=== PATIENT | female | born 1985 | race Caucasian/White ===

== ENCOUNTER 2023-09-12 12:40 | Outpatient (REF) | payer OTHER, SELFPAY ==
[2023-09-12 14:16] LABS: MANUAL DIFF FLAG NO
[2023-09-12 14:19] LABS: Basophils Absolute Auto 0.1 X10*3/uL (0.0-0.2); Basophils Percent Auto 0.8 % (0-2); Eosinophils Absolute Auto 0.3 X10*3/uL (0.0-0.4); Eosinophils Percent Auto 3.1 % (0-4); Hematocrit 42.6 % (37.0-47.0); Hemoglobin 14.1 g/dl (12.0-16.0); Imm Gran Abs Auto 0.04 X10*3/uL (0.00-0.03); Imm Gran Pct Auto 0.4 % (0.0-0.4); Lymphocytes Absolute Auto 4.1 X10*3/uL (1.2-4.9); Lymphocytes Percent Auto 37.9 % (20-40); Mean Corpuscular HGB Conc 33.1 g/dl (31.0-35.0); Mean Corpuscular Volume 93.6 fL (80.0-98.0); Mean Platelet Volume 10.6 fL (9.4-12.3); Monocytes Absolute Auto 0.6 X10*3/uL (0.1-1.2); Neutrophils Absolute Auto 5.5 x10*3/uL (2.0-8.3); Neutrophils Percent Auto 51.8 % (45-73); Platelet Count 260 X10*3/uL (160-400); Red Blood Count 4.55 X10*6/uL (4.20-5.50); Red Cell Distribution Width 13.3 % (11.0-16.0); White Blood Count 10.7 X10*3/uL (4.8-10.8)
[2023-09-12 14:51] LABS: Alanine Aminotransferase 14 U/L (0-31); Albumin Level 4.1 g/dL (3.5-5.0); Alkaline Phosphatase 67 U/L (39-117); Aspartate Amino Transferase 18 U/L (5-31); Bilirubin Direct 0.1 mg/dL (0.0-0.5); Bilirubin Total 0.3 mg/dL (0.0-1.0); Total Protein 7.1 g/dL (6.5-8.0)
[2023-09-12 14:53] LABS: TSH reflex Free T4 1.57 uIU/mL (0.32-4.0); Vitamin D 25-OH Total 40.3 ng/mL (>30)
[2023-09-12 15:02] LABS: Folate 16.6 ng/mL (> or = 4.0); Vitamin B12 859 pg/mL (200-900)
== END 2023-09-12 12:41 | disposition home or self-care (01) ==
LOC: HO.CHCLDS 12:40
PROVIDERS: Visit Provider Nurse Practitioner Family
DX: F43.10 Post-traumatic stress disorder, unspecified (principal); R53.83 Other fatigue
CPT/HCPCS: 36415; 80076; 82306; 82607; 82746; 84443; 85025

== ENCOUNTER 2025-02-26 10:17 | Outpatient (REF) | payer OTHER, SELFPAY ==
--- OUTSIDE RECORDS SUMMARY | 2025-02-26 10:15 | XMS_ITS | Encounter Summary ---
Author Organization [employer] Address [address] [place] [address] [address] [place] [address] Care Team Providers Care Wrestling Coach Name Role Phone Rita Luong MD Primary Care Provider [phone] Blas Palma Unavailable Unavailable Reason for Visit * Reason Comments Annual Exam Encounter Details Date Type Department Care Team ([facility] Contact Info) Description 02/26/2025 10:15 AM EDT Office Visit [facility] MED [facility] P[facility] [address] [place] [address] Rita Luong MD [address] [place] [address] Mild persistent asthma without complication (Primary Dx); Encounter for immunization; Gastroesophageal reflux disease without esophagitis; Moderate manic bipolar I disorder (CMS/HCC) (HCC); Encounter for annual wellness visit Social History Tobacco Use Types Packs/Day Years Used Date Smoking Tobacco: Every Day Cigarettes Tobacco Cessation:Ready to Q uit: Not Asked; Counseling Given: Not Answered Alcohol Use Standard Drinks/Week Comments Never 0 (1 standard drink = 0.6 oz pur e alcohol) Alcohol Answer Date Recorded Frequency of Alcohol Consumption Not on file 02/09/2024 Average Number of Drinks Not on file 024 Frequency of Binge Drinking Not on file 07/2023 Score 0 02/09/2024 Depression Answer Date Recorded Patient Health Questionnaire-9 Score 17 02/09/2024 Patient Health Questionnaire-9 Score 17 02/09/2024 Last PHQ-9: Questionnaire Data Not on file 1 Housing Stability Answer Date Recorded What is your housing situation today? I have ami johnson 02/21/[address] you li ve. Do you have problems with any of the following? None of the above 02/21/2025 Food Insecurity Answer Date Recorded Within the past 12 months, y ou worried that your food would run out before you got money to buy more: Never True 02/21/2025 Within the past 12 months,th e food you bought just didn't last and you didn't have enough money to get more: Never True Transportation Answer Date Recorded In the past 12 months, has l ack of transportation kept you from medical appts, meetings, work or from getting things needed for daily living? No 02/21/2025 Utilities Answer Date Recorded In the past 12 months, has t he electric, gas, oil or water company threatened to shut off services in your home? No 02/21/2025 Depression Answer Date Recorded Patient Health Questionnaire-2 Score 5 02/09/2024 Internet Access Answer Date Recorded Internet Access Q1 Yes 02/21/2025 Internet Access Q2 Not on file 02/21/2025 Comments No Sex and Gender Information Value Date Recorded Sex Assigned at Female 03/08/2022 10:19 AM EDT Legal Sex Female 10:19 AM EDT Gender Identity Female 02/10/2024 10:28 AM EDT Sexual Orientation Choose not to disclose 2021 10:19 AM EDT documented as of this encounter Last Filed Vital Signs Vital Sign Reading Time Taken Comments Blood Pressure 119/72 02/26/2025 9:59 AM EDT Pulse 73 02/26/2025 9:59 AM EDT Temperature 36.6 C (97.9 F) 02/26/2025 9:59 AM EDT Respiratory Rate 18 02/26/2025 9:59 AM EDT Oxygen Saturation - - Inhaled Oxygen Concentration - - Weight 76.7 kg (169 lb) 02/26/2025 9:59 AM EDT Height 158.1 cm (5' 2.25 ) 02/26/2025 9:59 AM ED T Body Mass Index 30.66 02/26/2025 9:59 AM EDT documented in this encounter Progress Notes * Rita Luong MD - 02/26/2025 10:15 AM EDT Subjective Patient ID: Chasidy Cheng is a 39 y.o. female who presents for Annual Exam. Asthma There is no chest tightness, cough, difficulty breathing, frequent throat clearing, hemoptysis, shortness of breath, sputum production or wheezing. This is a chronic problem. The problem has been unchanged (well controlled). Pertinent negatives include no chest pain, dyspnea on exertion, ear pain, fever, headaches, myalgias, nasal congestion, orthopnea, PND, postnasal drip, sore throat, sweats, trouble swallowing or weight loss. Her symptoms are alleviated by beta-agonist. She reports significant improvement on treatment. Her past medical history is significant for asthma. Review of Systems Constitutional: Negative. Negative for fever and weight loss. HENT: Negative for ear pain, postnasal drip, sore throat and trouble swallowing. Respiratory: Negative. Negative for cough, hemoptysis, sputum production, shortness of breath and wheezing. Cardiovascular: Negative for chest pain, dyspnea on exertion, palpitations and PND. Gastrointestinal: Negative. Genitourinary: Negative. Musculoskeletal: Negative for myalgias and neck pain. Neurological: Negative for headaches. Objective Physical Exam Constitutional: Appearance: Normal appearance. HENT: Head: Normocephalic and atraumatic. Right Ear: Tympanic membrane normal. Left Ear: Tympanic membrane normal. Mouth/Throat: Mouth: Mucous membranes are moist. Eyes: Pupils: Pupils are equal, round, and reactive to light. Cardiovascular: Rate and Rhythm: Normal rate and regular rhythm. Pulses: Normal pulses. Heart sounds: Normal heart sounds. Pulmonary: Effort: Pulmonary effort is normal. Breath sounds: Normal breath sounds. Abdominal: General: Abdomen is flat. Palpations: Abdomen is soft. Musculoskeletal: General: Normal range of motion. Skin: General: Skin is warm. Neurological: General: No focal deficit present. Mental Status: She is alert. Psychiatric: Mood and Affect: Mood normal. Behavior: Behavior normal. Assessment/Plan Diagnoses and all orders for this visit: Mild persistent asthma without complication Comments: Well controlled No changes in inhalers Encounter for immunization - FLU VACCINE TRIVALENT [id number] (Fluarix) 19 yrs + Gastroesophageal reflux disease without esophagitis Comments: Stable Moderate manic bipolar I disorder (CMS/HCC) ([facility]) Comments: Pt has been anxious about insuranc enot approving Zepbound She is given info about other options Encounter for annual wellness visit documented in this encounter Plan of Treatment Not on file documented as of this encounter Visit Diagnoses Diagnosis Mild persistent asthma without complication- Primary Encounter for immunization Gastroesophageal reflux disease without esophagitis Esophageal reflux Moderate manic bipolar I disorder (CMS/HCC) (HCC) Bipolar I disorder, most recent episode (or current) manic, moderate Encounter for annual wellness visit documented in this encounter Additional Health Concerns Assessment Noted Time PHQ-9 Depression Total Score: 17 024 9:54 AM EDT documented as of this encounter Care Teams Wrestling Coach Relationship Specialty Start Date End Date Rita Luong MD [address] [place] [address] PCP - General Family Medicine 04/20/12 Blas Palma FNP [address] [place] [id number] Nurse Practitioner Family Medicine 04/12/23 documented as of this encounter
--- OUTSIDE RECORDS SUMMARY | 2025-02-26 12:14 | XMS_ITS | Encounter Summary ---
Author Organization [employer] Address [address] [place] [address] [address] [place] [address] Care Team Providers Care Log Raft Worker Name Role Phone Rita Luong MD Primary Care Provider [phone] Blas Palma Unavailable Unavailable Reason for Visit * Reason Comments Med Refill Encounter Details Date Type Department Care Team (Late st Contact Info) Description 07/08/2022 Refill [facility] MED & PEDS [address] [place] [address] Blas Palma FNP PTSD (post-traumatic stress disorder) Social History Tobacco Use Types Packs/Day Years Used Date Smoking Tobacco: Never Assessed PHQ-2 Answer Date Recorded Patient Health Questionnaire-2 Score 6 06/15/2022 Comments Unknown Sex and Gender Information Value Date Recorded Sex Assigned at Female 03/08/2022 10:19 AM EDT Legal Sex Female 10:19 AM EDT Gender Identity Female 02/10/2024 10:28 AM EDT Sexual Orientation Choose not to disclose 2021 10:19 AM EDT documented as of this encounter Plan of Treatment Not on file documented as of this encounter Visit Diagnoses Diagnosis PTSD (post-traumatic stress disorder) Posttraumatic stress disorder documented in this encounter Additional Health Concerns Assessment Noted Time PHQ-9 Depression Total Score: 15 023 9:04 AM EST documented as of this encounter Care Teams Log Raft Worker Relationship Specialty Start Date End Date Rita Luong MD [address] [place] [id number] PCP - General Family Medicine 04/20/12 Blas Palma FNP [address] [place] [address] Nurse Practitioner Family Medicine 04/12/23 documented as of this encounter
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
--- OUTSIDE RECORDS SUMMARY | 2025-02-26 12:14 | XMS_ITS | Encounter Summary ---
Author Organization [facility] Address [address] [place] [address] Encounters * CPT with Dallas Vargas at [employer] on 2024-11-24 { reasonForRequest : Patient has a Cough for 3 weeks and chest congestion, Wheezing . , patientReports : Cough, fever greater than 2 days ; History of asthma, increased use of inhaler; Sputum increase ; Cough; Shortness of breath with exertion , denies":[ Increased work of breathing/labored with or without fever , Unable to speak in full sentences without distress , Discoloration of skin -cyanosis , Needs to sleep sitting up, can t catch breath , Shortness of breath in setting of confusion", COPD , COVID Exposure , Pain with inspiration ], chiefComplaints : Common Cold , pmh : Asthma, Severe Persistent Mental Illness (SP [place]) , allergies : Bactrim , otherAllergies :null, painAssess ment : , visitOutcome : , additionalComments : 39 y.o female complains of Common Cold\n\nPt has a productive cough for 3 weeks. She has chest congestion but unable to get much up. She does have mild shortness of breath. She has asthma and using her neb more. She does have a mild wheeze. \nShe does not have an headaches or body aches \nshe was using Mucinex but it did not help \nShe does not have an fever or chills no nausea \nHer daughter did have pneumonia \nI provided information on the mobile health provider response time and advised the patient and/or caregiver to monitor reported signs and symptoms. I discussed the warning signs of when to seek emergency care. } SC12 dispatched to the address listed above for the report of a female alliance party with cough. Arrival onscene, patient was found opening door for [facility] ambulating without assistance to a seated position, alert and oriented x4, patent airway, breathing non labored speaking in complete sentences, skin WPD in no obvious distress. +/= Chest rise. -SOB, -CP, -NVD, -Trauma, -Fever. GCS 15. slight wheezing onexpiration noted in right side. Patient reports she has been experiencing flu like symptoms over the past 3 weeks including productive cough with yellow sputum and congestion. Patient reports that she was seen about 2 weeks ago by [facility], tested negative for COVID/FLU. Patient refused additional COVID/FLU test. Patient denies any body aches, sore throat, fever, or chills. Patient reports history of asthma, using albuterol inhaler 2-3 times per day with brief improvement, reports she has not been using her nebulizer as she is almost out of Albuterol for it. Patient reports prior history of pneumonia and states that it feels similar. Patient vital signs obtained as noted. [facility] consulted, provided orders for 40mg Prednisone PO. [facility] advised that she would send prescription for antibiotics, Prednisone, and Albuterol for nebulizer. Patient preferred pharmacy verified. 40mg Prednisone PO administered without incident, six patient rights verified prior. Red flags discussed with patient, advised to call 911 if she experiences any life-threatening symptoms. [facility] Clear. IV_(FLUIDS_AND/OR_MEDICATION), MEDICATION_IM, POC_BLOODWORK Written by Dallas Vargas on 2024-11-24
--- OUTSIDE RECORDS SUMMARY | 2025-02-26 12:14 | XMS_ITS | Continuity of Care Document ---
Author Name [facility] Address [address] [place] [address] Organization Unknown Address [address] [place] [address] Medications No known medications Problems No known problems
--- OUTSIDE RECORDS SUMMARY | 2025-02-26 12:14 | XMS_ITS | Encounter Summary ---
Author Organization [employer] Address [address] [place] [address] 7 [place] [address] Care Team Providers Care Digital Printer Operator Name Role Phone Rita Luong MD Primary Care Provider [phone] Blas Palma Unavailable Unavailable Reason for Visit * Reason Onset Date Comments Chart Prep 02/25/2025 Encounter Details Date Type Department Care Team ([facility] Contact Info) Description 02/25/2025 Telephone [facility] CHC MED & PEDS [address] [place] [address] Rita Luong MD [address] [place] [address] Chart Prep Social History Tobacco Use Types Packs/Day Years Used Date Smoking Tobacco: Every Day Cigarettes Alcohol Use Standard Drinks/Week Comments Never 0 [...] Access Q2 Not on file 02/21/2025 Comments Unknown Sex and Gender Information Value Date Recorded Sex Assigned at Female 03/08/2022 10:19 AM EDT Legal Sex Female 10:19 AM EDT Gender Identity Female 02/10/2024 10:28 AM EDT Sexual Orientation Choose not to disclose 2021 10:19 AM EDT documented as of this encounter Miscellaneous Notes * Telephone Encounter - Darshana Aguiar [place] - 02/25/2025 2:19 PM EDT Chart Prep Labs: not done Images: not done Referrals: complete Vaccines due: due Screenings: mammogram, pap smear, STI screening, LMP, and PISQ Overdue care gaps: SBIRT, PHQ-9, PADMA-7, Disability screen, and Tobacco documented in this encounter Plan of Treatment Not on file documented as of this encounter Visit Diagnoses Not on filedocumented in this encounter Additional Health Concerns Assessment Noted Time PHQ-9 Depression Total Score: 17 024 9:54 AM EDT documented as of this encounter Care Teams Digital Printer Operator Relationship Specialty Start Date End Date Rita Luong MD [address] [place] [address] PCP - General Family Medicine 04/20/12 Blas Palma FNP [address] [place] [address] Nurse Practitioner Family Medicine 04/12/23 documented as of this encounter
--- OUTSIDE RECORDS SUMMARY | 2025-02-26 12:14 | XMS_ITS | Encounter Summary ---
Author Organization [employer] Address [address] 7t [place] [address] Care Team Providers Care Armored Machine Operator Name Role Phone Rita Luong MD Primary Care Provider [phone] Blas Palma Unavailable Unavailable Encounter Details Date Type Department Care Team ([facility] Contact Info) Description 04/11/2023 Telephone [facility] CHC MED & PEDS [address] [place], [place] [phone] Rita Luong MD [address] [place] [address] Social History Tobacco Use Types Packs/Day Years Used Date Smoking Tobacco: Never Assessed Depression Answer Date Recorded Patient Health Questionnaire-9 Score 11 03/08/2023 Patient Health Questionnaire-9 Score 11 03/08/2023 Last PHQ-9: Questionnaire Data Not on file 1 Housing Stability Answer Date Recorded What is your housing situation today? I have ami johnson 02/25/[address] you li ve. Do you have problems with any of the following? None of the above 02/25/2023 Food Insecurity Answer Date Recorded Within the past 12 months, y ou worried that your food would run out before you got money to buy more: Never True 02/25/2023 Within the past 12 months,th e food you bought just didn't last and you didn't have enough money to get more: Never True Transportation Answer Date Recorded In the past 12 months, has l ack of transportation kept you from medical appts, meetings, work or from getting things needed for daily living? No 02/25/2023 Utilities Answer Date Recorded In the past 12 months, has t he electric, gas, oil or water company threatened to shut off services in your home? No 02/25/2023 Depression Answer Date Recorded Patient Health Questionnaire-2 Score 4 03/08/2023 Comments Unknown Sex and Gender Information Value [...] Assessment Noted Time PHQ-9 Depression Total Score: 11 023 9:00 AM EDT documented as of this encounter Care Teams Armored Machine Operator Relationship Specialty Start Date End Date Rita Luong MD [address] [place] [address] PCP - General Family Medicine 04/20/12 Blas Palma FNP [address] [place] [address] Nurse Practitioner Family Medicine 04/12/23 documented as of this encounter
--- OUTSIDE RECORDS SUMMARY | 2025-02-26 12:14 | XMS_ITS | Encounter Summary ---
Author Organization [employer] Address [address] [place] [address] Care Team Providers Care Beef Pusher Name Role Phone Rita Luong MD Primary Care Provider [phone] Blas Palma Unavailable Unavailable Reason for Visit * Reason Comments Med Refill Encounter Details Date Type Department Care Team (Late st Contact Info) Description 09/12/2022 Refill [facility] MEDICINE [address] [place] [address] Blas Palma FNP Social History Tobacco Use Types Packs/Day Years Used Date Smoking Tobacco: Never Assessed PHQ-2 Answer Date Recorded Patient Health Questionnaire-2 Score 6 08/31/2022 Comments Unknown Sex and Gender Information Value [...] Time PHQ-9 Depression Total Score: 15 023 9:15 AM EDT documented as of this encounter Care Teams Beef Pusher Relationship Specialty Start Date End Date Rita Luong MD [address] [place] [address] PCP - General Family Medicine 04/20/12 Blas Palma FNP [address] [place] [address], [place] [address] Nurse Practitioner Family Medicine 04/12/23 documented as of this encounter
--- OUTSIDE RECORDS SUMMARY | 2025-02-26 12:14 | XMS_ITS | Encounter Summary ---
Author Organization [facility] Address [address] [place] [address] Encounters * CPT with Dallas Vargas at [employer] on 2024-11-09 { reasonForRequest : chest congestion , patientReports : ,& quot;denies :[ Increased work of breathing/labored with or without fever , Unable to speak in full sentences without distress , Discoloration of skin -cyanosis , Needs to sleep sitting up, can t catch breath , Shortness of breath in setting of confusion ], chiefComplaints : Common Cold , pmh : Asthma&qu ot;, allergies : Bactrim , otherAllergies :null, painAssessment&q uot;: , visitOutcome : , additionalComments : 39 y.ofemale complains of Common Cold\n\nPatient calling in reporting chest congestion for 3-4 days.\nPatient endorses a cough with bright yellow phlegm, however, is unable to expectorate, feels like the mucous is sitting in her chest.\nShe feels like she has some slight wheezes, denies chest pain, no shortness of breath.\nDenies fever/chills, no headache or dizziness, no nausea, vomiting or diarrhea.\nDenies any sore throat or earaches.\nShe has an inhaler and nebulizer that offer short term relief of symptoms.\nShe started mucinex yesterday, but has not been effective in assisting expectoration of phlegm.\nShe would like to be evaluated.\n\nI provided information on the mobile health provider response time and advised the patient and/or caregiver to monitor reported signs and symptoms. I discussed the warning signs of when to seek emergency care. } SC6 responds to the listed address for a 39yof w/ a c/c of cough and congestion x3-4days. Upon arrival on scene, pt opens the front door to the apartment building and leads [facility] up a very steep set ofstairs to her apartment. She is moving about unencumbered and is not in respiratory distress and does not have an increased WOB once at the top of the stairs. She sits on the sofa in the living room of a very small and cluttered apartment that smells of cigarettes. Pt has a general well-appearance.No stridor or sonorous respirations are present, no accessory muscle usage is noted and she has no one-sided weakness, slurred speech, or facial droop and no obvious bleeding. Pt endorses 4-5 days of chest congestion and cough. She says her 5yo daughter just got over pneumonia and her daughter's father is now fighting pneumonia and she has concerns about brenna it herself. She says she has ahx of asthma. Pt says she feels like all the congestion is in her chest. She began taking Mucinex yesterday and will take her third dose today. She has not used her inhaler at all since she has been sick and has only given herself two neb treatments in that time as well. No fevers/chills, n/v/d, abd pain, bladder/bowel issues, or cp w/ sob are reported. [facility] listens to lung sounds and gathers vital signs, then pt is assessed. Lung sounds are expiratorywheezes w/ decreased lung sounds throughout. Wheezes noted primarily in the middle. Pt is afebrile.Head is atraumatic and normocephalic. Sclera are clear and extraocular movements are intact. Neck is supple and trachea is midline. Chest rises and falls equally w/ respirations. No further physical exam is performed. [facility] recommends pt increase her nebulizer treatments to every 6 hours and her inhaler every four as needed as well as continuing the Mucinex as directed. [facility] contacts [facility] and discusses the above. [facility] orders a duoneb w/ lung sound reassessment post treatment. [facility] administers 1 duoneb treatment using a nebulizer pipe at 8 lpm. Lung sounds are reassessed and are improved to clear. Pt endorses a reduction in her wob. [facility] contacts [facility] and [facility] is pleased w/ the result. Pt is advised to increase the nebulizer and inhaler usage as previously discussed and encouraged to call [facility] back if she does not feel better in a few days. [facility] advises pt of the warning signs that require emergency care and pt gives her verbal understanding. [facility] is clear. Report completed by DAWOOD Barrett [id number]. IV_(FLUIDS_AND/OR_MEDICATION), MEDICATION_IM, POC_BLOODWORK Written by Dallas Vargas on 2024-11-09
--- OUTSIDE RECORDS SUMMARY | 2025-02-26 12:14 | XMS_ITS | Encounter Summary ---
Author Organization [employer] Address [address] [place] [address] 7 [place] [address] Care Team Providers Care Supervising Librarian Name Role Phone Rita Luong MD Primary Care Provider [phone] Blas Palma Unavailable Unavailable Encounter Details Date Type Department Care Team ([facility] st Contact Info) Description 12/16/2022 Orders Only [facility] CHC MED & PEDS [address] [place] [address] Nataliia Jarquin LPN Social History Tobacco Use Types Packs/Day Years Used Date Smoking Tobacco: Never Assessed PHQ-2 Answer Date Recorded Patient Health Questionnaire-2 Score 6 12/20/2022 Comments Unknown Sex and Gender Information Value [...] Assessment Noted Time PHQ-9 Depression Total Score: 13 023 11:24 AM EDT documented as of this encounter Care Teams Supervising Librarian Relationship Specialty Start Date End Date Rita Luong MD [address] [place] [address] PCP - General Family Medicine 04/20/12 Blas Palma FNP [address] [place] [address] Nurse Practitioner Family Medicine 04/12/23 documented as of this encounter
--- OUTSIDE RECORDS SUMMARY | 2025-02-26 12:14 | XMS_ITS | Encounter Summary ---
Author Organization [employer] Address [address] [place] [address] 7 [place] [address] Care Team Providers Care Resource Economist Name Role Phone Rita Luong MD Primary Care Provider Blas Palma Unavailable Unavailable Reason for Visit * Reason Onset Date Comments Prior Authorization 02/13/2024 Encounter Details Date Type Department Care Team ([facility] st Contact Info) Description 02/13/2024 Telephone [facility] MEDICINE [address] [place] [address] Rita Luong MD [address] [place], [place] [id number] Prior Authorization Social History Tobacco Use Types Packs/Day Years [...] housing situation today? I have ami johnson 02/01/[address] you li ve. Do you have problems with any of the following? None of the above 02/01/2024 Food Insecurity Answer Date Recorded Within the past 12 months, y ou worried that your food would run out before you got money to buy more: Never True 02/01/2024 Within the past 12 months,th e food you bought just didn't last and you didn't have enough money to get more: Never True Transportation Answer Date Recorded In the past 12 months, has l ack of transportation kept you from medical appts, meetings, work or from getting things needed for daily living? No 02/01/2024 Utilities Answer Date Recorded In the past 12 months, has t he electric, gas, oil or water company threatened to shut off services in your home? No 02/01/2024 Depression Answer Date Recorded Patient Health Questionnaire-2 Score 5 02/09/2024 Internet Access Answer Date Recorded Internet Access Q1 Yes 02/01/2024 Internet Access Q2 Not on file 02/01/2024 Comments Unknown Sex and Gender Information Value Date Recorded Sex Assigned at Female 03/08/2022 10:19 AM EDT Legal Sex Female 10:19 AM EDT Gender Identity Female 02/10/2024 10:28 AM EDT Sexual Orientation Choose not to disclose 2021 10:19 AM EDT documented as of this encounter Miscellaneous Notes * Telephone Encounter - Isac Marlon - 02/13/2024 12:45 PM EDT Tc from pt requesting status on PA for Alesia stating she spoke with pcp during last OV. Please contact pt at [phone]. documented in this encounter Plan of Treatment Not on file documented as of this encounter Visit Diagnoses Not on filedocumented in this encounter Additional Health Concerns Assessment Noted Time PHQ-9 Depression Total Score: 17 024 9:54 AM EDT documented as of this encounter Care Teams Resource Economist Relationship Specialty Start Date End Date Rita Luong MD [address] [place] [address] PCP - General Family Medicine 04/20/12 Blas Palma FNP [address] [place] [address] Nurse Practitioner Family Medicine 04/12/23 documented as of this encounter
--- OUTSIDE RECORDS SUMMARY | 2025-02-26 12:14 | XMS_ITS | Encounter Summary ---
Author Organization [employer] Address [address] [place] [address] 7 [place] [address] Care Team Providers Care Sprayer Machine Name Role Phone Rita Luong MD Primary Care Provider [phone] Blas Palma Unavailable Unavailable Reason for Visit * Reason Comments Pre-visit Planning SDOH negative, Tobac co screening positive. Encounter Details Date Type Department Care Team ([facility] Contact Info) Description 02/21/2025 Patient Outreach [facility] CHC MED & PEDS [address] [place] [address] Rita Luong MD [address] [place] [address] Pre-visit Planning (SDOH negative, Tobacco screening positive. ) Social History Tobacco Use Types Packs/Day Years [...] AM EDT documented as of this encounter Progress Notes * Richa Flowers - 02/21/2025 1:30 PM EDT SUS[facility] placed successful outbound call to patient for pre-visit planning. Patient name and confirmed. Patient confirms appt date and time, and has transportation arrangements. Biggest concern for appointment at this time is no concerns. Appropriate screenings completed in anticipation ofappointment. documented in this encounter Plan of Treatment Not on file documented as of this encounter Visit Diagnoses Not on filedocumented in this encounter Additional Health Concerns Assessment Noted Time PHQ-9 Depression Total Score: 17 024 9:54 AM EDT documented as of this encounter Care Teams Sprayer Machine Relationship Specialty Start Date End Date Rita Luong MD [address] [place] [address] PCP - General Family Medicine 04/20/12 Blas Palma FNP [address] [place] [address] Nurse Practitioner Family Medicine 04/12/23 documented as of this encounter
--- OUTSIDE RECORDS SUMMARY | 2025-02-26 12:14 | XMS_ITS | Encounter Summary ---
Author Organization [employer] Address [address] [place] [address] 7 [place] [address] Care Team Providers Care Pipe Organ Builder Name Role Phone Rita Luong MD Primary Care Provider [phone] Blas Palma Unavailable Unavailable Reason for Visit * Reason Comments Med Refill Encounter Details Date Type Department Care Team ([facility] st Contact Info) Description 08/18/2024 Refill [facility] CHC MED & PEDS [address] [place], [place] [phone] Rita Luong MD [address] [place] [address] Mild persistent asthma, unspecified whether complicated; Class 3 severe obesity with serious comorbidity and body mass index (BMI) of 40.0 to 44.9 in adult, unspecified obesity type Social History Tobacco Use Types Packs/Day Years [...] this encounter Visit Diagnoses Diagnosis Mild persistent asthma, unspecified whether complicated Class 3 severe obesity with serious comorbidity and body mass index (BMI) of 40.0 to 44.9 in adult, unspecified obesity type (HCC) documented in this encounter Additional Health Concerns Assessment Noted Time PHQ-9 Depression Total Score: 17 024 9:54 AM EDT documented as of this encounter Care Teams Pipe Organ Builder Relationship Specialty Start Date End Date Rita Luong MD [address] [place] [address] PCP - General Family Medicine 04/20/12 Blas Palma FNP [address] [place] [address] Nurse Practitioner Family Medicine 04/12/23 documented as of this encounter
--- OUTSIDE RECORDS SUMMARY | 2025-02-26 12:14 | XMS_ITS | Encounter Summary ---
Author Organization [employer] Address [address] [place] [address] [address] [place] [address] Care Team Providers Care Special Effects Artist Name Role Phone Rita Luong MD Primary Care Provider [phone] Blas Palma Unavailable Unavailable Reason for Visit * Reason Onset Date Comments Medication Question 12/21/2023 Encounter Details Date Type Department Care Team ([facility] Contact Info) Description 12/21/2023 Telephone [facility] MEDICINE [address] [place] [address] Rita Luong MD [address] [place], [place] [phone] Medication Question Social History Tobacco Use Types Packs/Day Years Used Date Smoking Tobacco: Never Assessed Depression Answer Date Recorded Patient Health Questionnaire-9 Score 12 11/15/2023 Patient Health Questionnaire-9 Score 12 11/15/2023 Last PHQ-9: Questionnaire Data Not on file 0 11/15/2023 Housing Stability Answer Date Recorded What is [...] Date Recorded Patient Health Questionnaire-2 Score 6 11/15/2023 Comments Unknown Sex and Gender Information Value Date Recorded Sex Assigned at Female 03/08/2022 10:19 AM EDT Legal Sex Female 10:19 AM EDT Gender Identity Female 02/10/2024 10:28 AM EDT Sexual Orientation Choose not to disclose 2021 10:19 AM EDT documented as of this encounter Miscellaneous Notes * Telephone Encounter - Camille Eli - 12/21/2023 11:44 AM EDT Tc from pt requesting a call from PCP Louie power plant assistant Billie in regards to some concerns for her medications. documented in this encounter Plan of Treatment Not on file documented as of this encounter Visit Diagnoses Not on filedocumented in this encounter Additional Health Concerns Assessment Noted Time PHQ-9 Depression Total Score: 12 024 10:15 AM EDT documented as of this encounter Care Teams Special Effects Artist Relationship Specialty Start Date End Date Rita Luong MD [address] [place] [address] PCP - General Family Medicine 04/20/12 Blas Palma FNP [address] [place] [address] Nurse Practitioner Family Medicine 04/12/23 documented as of this encounter
--- OUTSIDE RECORDS SUMMARY | 2025-02-26 12:14 | XMS_ITS | Encounter Summary ---
Author Organization [employer] Address [address] [facility] [address]t [place] [address] Care Team Providers Care Lawn Care Technician Name Role Phone Rita Luong MD Primary Care Provider [phone] Blas Palma Unavailable Unavailable Encounter Details Date Type Department Care Team (Latest Contact Info) Description 02/26/2025 Travel Social History Tobacco Use Types Packs/Day Years [...] documented as of this encounter Care Teams Lawn Care Technician Relationship Specialty Start Date End Date Rita Luong MD [address] [place] [address] PCP - General Family Medicine 04/20/12 Blas Palma FNP [address] [place] [address] Nurse Practitioner Family Medicine 04/12/23 documented as of this encounter
--- OUTSIDE RECORDS SUMMARY | 2025-02-26 12:15 | XMS_ITS | Continuity of Care Document ---
Author Name Dallas Vargas Address [address] [place] [id number] Organization Unknown Address [address] [place] [id number] Medications No known medications Problems No known problems
--- OUTSIDE RECORDS SUMMARY | 2025-02-26 12:15 | XMS_ITS | Encounter Summary ---
Author Organization [facility] Address [address] [place] [address] Encounters * CPT with Medical instED at [employer] on 2025-01-03 { reasonForRequest : Pt reporting a swollen lump under her tongue, which has developed into pain around the bottom right side of her jaw , patientReports : Abscess", denies :[ Caldwell Flash, circumferential caldwell , Caldwell reported with black tissue to the area , Open skin area after a fall with uncontrolled bleeding , Abscess/infection with streaking noted, presence of fever or without , History of cellulitis, isolated redness noted , Fever and chills noted in setting of wound , Rash , Bites -bugs, spider ], chiefComplaints : Dental Complaint, Wound Care , pmh : Asthma, Severe Persistent Mental Illness (SPMI) , aller gies : Bactrim , otherAllergies :null, painAssessment : &quo t;, visitOutcome : , additionalComments : 39 y.o female complains of Dental Complaint, Wound Care\npatient self referring\nsymptoms started about 3 days ago developed lump underneath tongue near lingual frenulum is. described as hard and painful.\ntiny pinhead pustule still intact and has been spreading to under her jawbone\ndenies any fever or chills\npatient says cool liquid stings but feels a little relief afterward. \ndenies any difficulty swallowing or breathing difficulties.\nDenies any kidney disease and denies being on any blood thinners \nrequesting insted assessment and reviewed red flags.\nI provided information on the mobile health provider response time and advised the patient and/or caregiver to monitor reported signs and symptoms. I discussed the warning signs of when to seek emergency care. } SC1 sent to the above address for the pt with a rash. Upon arrival met the pts RAMP AGENT at the door. Thepts RAMP AGENT stated he has had this for about 2 days now and it is getting a little bigger. The pts PMH is HTN, CAD, DMII, Prostate CA, Dementia and a CVA in 2020. The pt is able to move on his own, but does need help with his daily needs. The RAMP AGENT states that the pt does get infections/ ingrown hairs inhis genital area and they use 2 creams ( Hydocortisone, and Econazole ) which seem to help with them. 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 The pts area in question was below his lower right buttocks cheek on the midline posterior aspect of his right leg. Th area is about 3 inches long and about 1/[address] Roland was contacted and he recommended that the pt go to the closest urgent care and have the spot drained. The pts RAMP AGENT was given the recommendationand she stated they would be taking him later this afternoon or first thing in the morning to get it drained. The warning signs were gone over with the RAMP AGENT, chest pain, severe shortness of breath, fever, syncope, extreme warmth on the affected area, or streaking of red lines, they understood these instruction and SC1 cleared the call. WRR. 16 ORAL_MEDICATION, POC_FLU_STREP, COVID_TEST, WOUND_CARE Written by Medical instED on 2025-01-03
--- OUTSIDE RECORDS SUMMARY | 2025-02-26 12:15 | XMS_ITS | Encounter Summary ---
Author Organization [employer] Address [address] [place] [address] [address] [place] [address] Care Team Providers Care Material Controller Name Role Phone Rita Luong MD Primary Care Provider [phone] Blas Palma Unavailable Unavailable Reason for Visit * Reason Onset Date Comments Call Back Request 09/08/2023 Encounter Details Date Type Department Care Team ([facility] Contact Info) Description 09/08/2023 Telephone [facility] [address] [place] [address] Rita Luong MD [address] [place] [address] Call Back Request Social History Tobacco Use Types Packs/Day Years Used Date Smoking Tobacco: Never Assessed Depression Answer Date Recorded Patient Health Questionnaire-9 Score 15 08/16/2023 Patient Health Questionnaire-9 Score 15 08/16/2023 Last PHQ-9: Questionnaire Data Not on file 0 08/16/2023 Housing Stability Answer Date Recorded What is [...] Date Recorded Patient Health Questionnaire-2 Score 6 08/16/2023 Comments Unknown Sex and Gender Information Value Date Recorded Sex Assigned at Female 03/08/2022 10:19 AM EDT Legal Sex Female 10:19 AM EDT Gender Identity Female 02/10/2024 10:28 AM EDT Sexual Orientation Choose not to disclose 2021 10:19 AM EDT documented as of this encounter Miscellaneous Notes * Telephone Encounter - Michelle Bains - 09/08/2023 10:23 AM EDT Tc from pt requesting to speak with a nurse in regards to gabapentin (Neurontin) 300 MG capsule. States she is having issues getting medication at pharmacy. Please contact pt at [phone] documented in this encounter Plan of Treatment Not on file documented as of this encounter Visit Diagnoses Not on filedocumented in this encounter Additional Health Concerns Assessment Noted Time PHQ-9 Depression Total Score: 15 024 10:01 AM EDT documented as of this encounter Care Teams Material Controller Relationship Specialty Start Date End Date Rita Luong MD [address] [place] [address] PCP - General Family Medicine 04/20/12 Blas Palma FNP [address] [place] [address] Nurse Practitioner Family Medicine 04/12/23 documented as of this encounter
--- OUTSIDE RECORDS SUMMARY | 2025-02-26 12:15 | XMS_ITS | Continuity of Care Document ---
Author Name Dallas Vargas Address [address] [place] [id number] Organization Unknown Address [address] [place] [address] Medications No known medications Problems No known problems
[2025-02-26 14:48] LABS: MANUAL DIFF FLAG NO
[2025-02-26 14:52] LABS: Hematocrit 39.5 % (37.0-47.0); Hemoglobin 12.8 g/dl (12.0-16.0); Imm Gran Abs Auto 0.06 X10*3/uL (0.00-0.03); Imm Gran Pct Auto 0.5 % (0.0-0.4); Lymphocytes Absolute Auto 3.2 X10*3/uL (1.2-4.9); Mean Corpuscular HGB Conc 32.4 g/dl (31.0-35.0); Mean Corpuscular Hemoglobin 31.4 pg (27.0-33.0); Mean Corpuscular Volume 96.8 fL (80.0-98.0); NRBC Abs Auto 0.000 X10*3/uL (0.0-0.012); NRBC Pct Auto 0.0 /100WBC (0.0-0.2); Platelet Count 256 X10*3/uL (160-400); Red Blood Count 4.08 X10*6/uL (4.20-5.50); White Blood Count 12.0 X10*3/uL (4.8-10.8)
[2025-02-26 17:40] LABS: Thyroid Stimulating Hormone 1.45 uIU/mL (0.32-4.0)
[2025-02-26 17:42] LABS: Anion Gap 10 (12-20)
[2025-02-26 17:47] LABS: Alanine Aminotransferase 15 U/L (0-31); Albumin Level 4.3 g/dL (3.5-5.0); Alkaline Phosphatase 57 U/L (39-117); Aspartate Amino Transferase 22 U/L (5-31); Blood Urea Nitrogen 9 mg/dL (9-16); Calcium 9.4 mg/dL (8.4-10.2); Carbon Dioxide 29 mmol/L (22-29); Chloride 105 mmol/L (96-108); Cholesterol 204 mg/dL (<200); Estimated Glomerular Filt Rate > 60; HDL Cholesterol 50 mg/dL (>40); Potassium 4.7 mmol/L (3.3-5.1); Sodium 139 mmol/L (135-145); Total Protein 6.5 g/dL (6.5-8.0); Triglycerides 99 mg/dL (<150)
== END 2025-02-26 10:18 | disposition home or self-care (01) ==
LOC: HO.CHCLDS 10:17
PROVIDERS: PCP Dietitian, Registered
DX: Z13.1 Encounter for screening for diabetes mellitus (principal); F31.9 Bipolar disorder, unspecified; F43.10 Post-traumatic stress disorder, unspecified; Z13.6 Encounter for screening for cardiovascular disorders
CPT/HCPCS: 36415; 80053; 80061; 80076; 82248; 83036; 84443; 85025